=== PATIENT | male | born 1970 | race Caucasian/White ===

== ENCOUNTER → 2017-04-05 | Outpatient (CLI) | payer MEDICARE | LOC: HEART 5 09:23 | DX: E11.22 Type 2 diabetes mellitus with diabetic chronic kidney disease (principal); N18.3 Chronic kidney disease, stage 3 (moderate); J44.9 Chronic obstructive pulmonary disease, unspecified | CPT/HCPCS: 94010 ==

== ENCOUNTER → 2021-02-08 | Outpatient (CLI) | payer OTHER ==
[~2021-02-08] MED LIST: ASPIRIN CHEWABL81 MG PO; BASAGLAR K100 UNIT/1 SQ; CATAPRES 0.1MG0.1 MG PO; COREG 25MG TAB25 MG PO; LIPITOR TAB 2020 MG PO; LISINOPRIL5 MG PO; NOVOLOG FL100 UNIT/1 SQ; VELTASSA PO; VITAMIN D31000 UNI1 PO
== END ==
LOC: LAB 17:46
PROVIDERS: Internal Medicine Nephrology
DX: N18.30 Chronic kidney disease, stage 3 unspecified (principal); N25.81 Secondary hyperparathyroidism of renal origin
CPT/HCPCS: 36415; 80053; 82043; 82570; 83970; 84100; 84156

== ENCOUNTER → 2021-03-02 | Outpatient (CLI) | payer OTHER | LOC: LAB 15:50 | PROVIDERS: Internal Medicine Nephrology | DX: N18.31 Chronic kidney disease, stage 3a (principal) | CPT/HCPCS: 80048 ==

== ENCOUNTER → 2021-03-29 | Outpatient (CLI) | payer OTHER | LOC: LAB 20:02 | PROVIDERS: Internal Medicine Nephrology | DX: N17.9 Acute kidney failure, unspecified (principal) | CPT/HCPCS: 80048; 82043; 82570; 84156 ==

== ENCOUNTER → 2021-07-06 | Outpatient (CLI) | payer OTHER ==
[2021-07-07 10:13] LABS: CREATININE, URINE 185.2 mg/dL (Not Estab.)
== END ==
LOC: LAB 11:35
PROVIDERS: Internal Medicine Nephrology
DX: N18.32 Chronic kidney disease, stage 3b (principal)
CPT/HCPCS: 36415; 80053; 82043; 82570; 84156

== ENCOUNTER → 2021-08-11 | Outpatient (CLI) | payer OTHER | LOC: LAB 09:15 | PROVIDERS: Internal Medicine Nephrology | DX: N18.32 Chronic kidney disease, stage 3b (principal) | CPT/HCPCS: 36415; 80048 ==

== ENCOUNTER → 2021-10-05 | Outpatient (CLI) | payer OTHER | LOC: LAB 12:03 | PROVIDERS: Internal Medicine Nephrology | DX: N18.32 Chronic kidney disease, stage 3b (principal) | CPT/HCPCS: 36415; 80053; 82043; 82570; 84156 ==

== ENCOUNTER → 2021-10-12 | Outpatient (CLI) | payer OTHER | LOC: KOH-I 09-21 15:30 | DX: L97.522 Non-pressure chronic ulcer of other part of left foot with fat layer exposed (principal); E11.621 Type 2 diabetes mellitus with foot ulcer; Z79.4 Long term (current) use of insulin; L03.032 Cellulitis of left toe; M79.675 Pain in left toe(s) | CPT/HCPCS: 93926 ==

== ENCOUNTER → 2022-01-11 | Outpatient (CLI) | payer OTHER ==
[2022-01-13 11:17] LABS: CREATININE, URINE 128.8 mg/dL (Not Estab.)
== END ==
LOC: LAB 16:29
PROVIDERS: Internal Medicine Nephrology
DX: N18.32 Chronic kidney disease, stage 3b (principal)
CPT/HCPCS: 36415; 80053; 82043; 82570; 84156

== ENCOUNTER → 2022-05-09 | Outpatient (CLI) | payer OTHER ==
[2022-05-11 10:14] LABS: CREATININE, URINE 154.1 mg/dL (Not Estab.)
== END ==
LOC: LAB 14:41
PROVIDERS: Internal Medicine Nephrology
DX: N18.32 Chronic kidney disease, stage 3b (principal)
CPT/HCPCS: 36415; 80053; 82043; 82570; 84156